=== PATIENT | female | born 1975 | race Caucasian/White ===

== ENCOUNTER → 2016-12-05 | Outpatient (CLI) | payer OTHER ==
--- NOTE | 2016-12-05 11:55 | MR ---
EXAMINATION TYPE: MR brain/cspine wo DATE OF EXAM: 12/05/2016 COMPARISON: NONE HISTORY: Headaches,dizziness, memory loss TECHNIQUE: T1 sagittal and coronal, T2 sagittal, and gradient echo axial views of the cervical spine are submitted. FINDINGS: The cranial cervical junction is preserved. There is no abnormal signal seen within the sp inal cord or paraspinal soft tissues. At C2-3 there is no disc herniation, canal stenosis, or foraminal encroachment. At C3-4 there is no disc herniation, canal stenosis, or foraminal encroachment At C4-5 there is no disc herniation, canal stenosis, or foraminal encroachment At C5-6 there is right paracentral disc protrusion. There is mild effacement of thecal sac. No spinal cord contact. Mild right-sided foraminal encroachment. At C6-7 there is no disc herniation, canal stenosis, or foraminal encroachment At C7-T1 there is no disc herniation, canal stenosis, or foraminal encroachment IMPRESSION: 1. Right paracentral disc protrusion or small herniation C5-C6 with mild effacement of thecal sac bu t no spinal cord contact. Mild right-sided foraminal encroachment. EXAMINATION TYPE: MR brain/cspine wo DATE OF EXAM: 12/05/2016 COMPARISON: NONE HISTORY: Headaches,dizziness, memory loss T1-weighted sagittal, T2, FLAIR, and diffusion axial, and T2 coronal coronal views of the brain are s ubmitted. There is no evidence of acute ischemia. The ventricles, basal cisterns, and sulci overlying the conv exities are consistent with the patient's age. There is no mass effect. Craniocervical junction maintained. Sella turcica has a normal appearance. No cerebellopontine angle mass. Changes of chronic sinusitis noted. White matter: No definite sizable area of abnormal signal seen within the white matter. IMPRESSION: 1. No acute intracranial process
== END | disposition home or self-care (01) ==
LOC: RADMRIMAIN 10:50
PROVIDERS: ATTEND Nurse Practitioner Acute Care
DX: M50.222 Other cervical disc displacement at C5-C6 level (principal); R51 Headache; R42 Dizziness and giddiness; R41.3 Other amnesia; Z88.0 Allergy status to penicillin; Z88.1 Allergy status to other antibiotic agents
CPT/HCPCS: 70551; 72141